=== PATIENT | female | born 1980 | race Caucasian/White ===

== ENCOUNTER → 2021-09-20 08:47 | Outpatient (CLI) | payer OTHER, SELFPAY ==
--- NOTE | 2021-09-20 08:51 | DI.MG.S_ITS ---
BILATERAL DIGITAL SCREENING MAMMOGRAM 3D/2D WITH CAD: 09/20/2021 CLINICAL: Routine screening. Baseline exam. No prior exams were available for comparison. The tissue of both breasts is heterogeneously dense. This may lower the sensitivity of mammography. Current study was also evaluated with a Computer Aided Detection (CAD) system. No significant masses, calcifications, or other findings are seen in either breast. IMPRESSION: NEGATIVE There is no mammographic evidence of malignancy. A 1 year screening mammogram is recommended. This exam was interpreted at Station ID: [id number]. NOTE: For mammograms, a report in lay terms will be sent to the patient. Approximately 15% of breast malignancies will not be visualized mammographically. In the management of a palpable breast mass, a negative mammogram must not discourage biopsy of a clinically suspicious lesion. Electronically Signed By: James Day M.D., jr/campos:09/20/2021 12:33:56 letter sent: Normal Exam ACR BI-RADS Category 1: Negative 3341F
== END ==
PROVIDERS: PCP Physician Assistant; Referring Provider Physician Assistant; Visit Provider Physician Assistant
DX: Z12.31 Encounter for screening mammogram for malignant neoplasm of breast (principal)
CPT/HCPCS: 77063; 77067

== ENCOUNTER → 2022-06-14 10:11 | Outpatient (CLI) | payer OTHER, SELFPAY ==
[2022-06-14 11:35] LABS: COVID19 -Nasal RAPID Negative (Negative)
== END ==
PROVIDERS: PCP Family Medicine; Visit Provider Obstetrics & Gynecology
DX: Z01.812 Encounter for preprocedural laboratory examination (principal); Z20.822 Contact with and (suspected) exposure to COVID-19
CPT/HCPCS: 87635

== ENCOUNTER 2022-06-14 12:06 | Day surgery (SDC) | payer OTHER, SELFPAY ==
[2022-06-07 14:02] VITALS: BMI 20.7
[2022-06-14] VITALS (10 sets, daily range): BP systolic 95–127; BP diastolic 57–75; PULSE 62–89; RESP 10–22; TEMP 36–36.6; O2SAT 94–100; BMI 20.5
--- NOTE | 2022-06-14 | PATH_ITS ---
[facility] Accession Number: [id number] . 01 Material submitted: . uterus - UTERUS, CERVIX, BILATERAL FALLOPIAN TUBES . 01 Diagnosis: Uterus, Cervix and Bilateral Fallopian Tubes, Hysterectomy and Bilateral Salpingectomy: Cervix with mild chronic inflammation; no dysplasia or malignancy. Proliferative endometrium; no atypical hyperplasia or malignancy. Histologic features suggestive of benign endometrial polyp. Benign leiomyomas. Complete cross-section of bilateral fimbriated fallopian tube lumen with benign paratubal cysts. No malignancy. [facility] 06/18/2022 1104 Local . 01 Electronically signed: . Luoann Mayers MD, Pathologist NPI- [id number] . 01 Gross description: . Received in formalin labeled with the patient's name and uterus, cervix, bilateral fallopian tubes, and consists of a fragmented disrupted uterus weighing 390 grams and aggregating to 18.5 x 12.4 x 6.4 cm. Two unoriented fimbriated fallopian tubes are attached, but due to the disruption and fragmentation, orientation cannot be determined. The fallopian tubes measure 6.8 x 0.9 cm and 5.6 x 1.0 cm, respectively. The cervix is detached and measures 3.5 x 3.0 cm. The ectocervix is pink-rivers and smooth, and the os is slit-like and measures 1.0 cm in diameter. The uterine serosa is rivers and trabecular with a firm nodule extending from the serosal surface measuring 3.1 cm in greatest dimension. The endometrial canal attached to the cervix had rivers herringbone mucosa and measures 4.1 cm in length. The intact portion of endometrial cavity measures approximately 3.1 cm from cornu to cornu, and 2.9 cm in length with red velvety endometrium averaging 0.1 cm thick. The myometrium measures up to 3.5 cm in maximum thickness. Multiple well-circumscribed white firm nodules are identified located intramurally and subserosally measuring up to 2.2 cm in greatest dimension. The area of the myometrium that is trabecular and whorled with rivers mucoid material is identified measuring 4.0 cm in greatest dimension. No additional lesions, hemorrhage, or necrosis is identified. The longer fallopian tube has smooth congested serosa with a cystic structure near the fimbriated end measuring 1.3 cm in greatest dimension filled with clear serous fluid. Sectioning reveals an unremarkable stellate lumen. The shorter fallopian tube has smooth congested serosa with no cystic structures identified and sectioning reveals unremarkable stellate lumen. Garbage Collector sections are submitted as follows: . A1: Cervix, A2: Opposite cervix. A3: Full-thickness section to include nodule. A4-A5: Possible full-thickness section composite to include nodular area with mucous material. A6: Additional outside sales representative insurance nodules. A7: Longer fallopian tube to include one-half of the bisected fimbriae and outside sales representative insurance cross-sections. A8: [place] fallopian tube to include one-half of bisected fimbriae and outside sales representative insurance cross-sections. ([id number]) /MRV 06/15/2022 1522 Local . 01 Pathologist provided ICD-10: N84.0, D25.9, Z30.2 . 01 CPT . 460464 Specimen Comment: A courtesy copy of this report has been sent to [facility] Performed at: 01 [facility] [address] [place] [address], [place], [place] [id number] MD Farhan Suarez MD Phone: [phone]
[2022-06-14] MEDS: LACTATED RINGERS 1,000 ML 42 ML IV ×2 (13:02→16:44)
[2022-06-14] MEDS: ACETAMINOPHEN 325 MG TABLET 650 MG PO (13:08)
[2022-06-14 13:19] LABS: Add Manual Diff / Slide Review NO; Basophils Absolute Auto 0 /uL (0-100); Eosinophils Absolute Auto 100 /uL (0-450); Eosinophils Percent Auto 1.7 % (2-4); Hematocrit 39.3 % (36-46); Hemoglobin 13.1 g/dL (12.0-16.0); Lymphocytes Absolute Auto 1400 /uL (1100-4500); Lymphocytes Percent Auto 38.2 % (25-40); Mean Corpuscular HGB Conc 33.5 % (30-36); Mean Corpuscular Hemoglobin 29.8 PG (26-34); Mean Corpuscular Volume 89.1 fL (80-100); Monocytes Absolute Auto 200 /uL (0-900); Monocytes Percent Auto 5.9 % (3-14); Neutrophils Absolute Auto 2000 /uL (1500-7000); Neutrophils Percent Auto 53.2 % (50-75); Platelet Count 208 X10^3/uL (150-400); Red Blood Cell Count 4.41 X10^6/uL (4.0-5.2); Red Cell Distribution Width 13.4 % (11.6-14.8); White Blood Cell Count 3.7 X10^3/uL (4.5-11.0)
[2022-06-14 13:43] LABS: Alanine Aminotransferase 26 IU/L (<35); Albumin 4.4 g/dL (3.5-5.0); Albumin Globulin Ratio 1.3 (1.0-2.8); Alkaline Phosphatase 51 U/L (38-126); Aspartate Aminotransferase 24 IU/L (14-36); BUN Creatinine Ratio 15.5 (6-22); Bilirubin Total 0.7 mg/dL (0.2-1.3); Blood Urea Nitrogen 9 mg/dL (7-17); Calcium 8.9 mg/dL (8.4-10.2); Carbon Dioxide 25 mmol/L (22-32); Chloride 104 mmol/L (98-107); Estimated Glomerular Filt Rate > 60 mL/min (>60); Globulin 3.3 g/dL (1.7-4.1); Glucose 89 mg/dL (70-100); HEMOLYSIS < 15 (0-50); Sodium 138 mmol/L (137-145); Total Protein 7.7 g/dL (6.3-8.2)
--- NOTE | 2022-06-14 14:35 | PM.PREOP ---
Pre-operative Note COVID-19 COVID-19 status: Negative Result date/Date tested (Pos, Neg/Pending): 06/14/22 Criteria for continued procedure: Possibility delay results in more complex future surgery or treatment and Continuing or worsening of significant or severe pain Interval Note History & Physical reviewed/Exam performed by Physician: Yes Changes to H&P: No
[2022-06-14] MEDS: SCOPOLAMINE 1 PATCH TOP (14:49)
[2022-06-14] MEDS: APREPITANT 40 MG CAPSULE PO (14:50)
[2022-06-14] MEDS: CEFAZOLIN 2 GM/100 ML PREMIX 100 ML IV (15:03)
--- NOTE | 2022-06-14 15:58 | SUR.OPER ---
Lithotomy on padded OR bed. [place] Pad Positioner under torso. Head on pillow, arms padded and tucked at sides. Legs secured in padded yellow fins stirrups.
[2022-06-14] MEDS: BUPIVACAINE 0.5% W/ EPI (PF) 30 ML VIAL INJ (16:07)
[2022-06-14] MEDS: ONDANSETRON 4 MG/2 ML INJ IV (18:13)
--- NOTE | 2022-06-14 18:20 | PM.OP.1 ---
Operative Date/Time/Diagnoses Date of procedure: 06/14/22 Time of procedure: 16:00 Pre-op diagnosis: symptomatic large fibroid uterus Post-op diagnosis: same Procedure & Clinicians Procedure: Laparoscopic hysterectomy and bilateral salpingectomy Same procedure as scheduled: Yes Indications: 41-year-old female with the a fibroid uterus with a 9.5 cm left posterior uterine fibroid. She was symptomatic with menorrhagia, intermenstrual spotting, chronic cyclic pelvic pain and dyspareunia as well as some pressure symptoms with urinary frequency. She desired to proceed with hysterectomy for definitive treatment. She had an endometrial biopsy which was. She had a Pap smear within the year without any significant abnormality, Pap was ASCUS negative HPV. Surgeon: Berta Marques School Year Nanny: Mejia Yao Click Yes if Unassisted: No Anesthesia Type: General Operative Notes Findings: Enlarged uterus, irregular in shape with a round mass, fullness, posteriorly in the midline to left side of the uterus. The apparent fibroid was soft to palpation and soft inspection with removal of the uterus. There was also a smaller, approximately 3 cm subserosal fibroid at the right posterior fundus. The fallopian tubes and ovaries were normal in appearance. There was no visible endometriosis in the pelvis. The abdomen and pelvis were without adhesions. The upper abdomen appeared normal. The liver appeared normal. Closure Type: primary Specimen(s): other (uterus with fibroid, cervix and bilateral fallopian tubes. ) Estimated Blood Loss (mL): 10 Blood products transfused: none Procedure in detail: After being properly identified she was taken operating room. After an adequate level of general anesthesia was obtained she was placed in the dorsal lithotomy position in [facility]. Bimanual examination was performed. On abdominal exam the uterus was not noted to be as high in her abdomen as in the office; was not easily palpated on abdominal exam today with being lower in her abdomen,perhaps after drainage of her bladder. Uterus on bimanual examination was approximately 14 cm in length. She was prepped and draped in routine sterile fashion. A Rand catheter was placed with the prep. Time-out was taken the patient and procedure was identified. An open-sided Graves speculum was placed and the cervix was grasped with a single-tooth tenaculum. There was descent of the cervix to the mid vagina with the tenaculum. The cervix was dilated and the uterus was sounded. The ProDeafare intrauterine manipulator with a large cervical cup was placed without difficulty. Attention was placed abdominally. After injection of approximately 2 mL of local anesthesia, a small vertical infraumbilical incision was made. The abdomen was elevated and a Veress needle was placed without difficulty. Drop test confirmed intraperitoneal placement. the CO2 gas was connected. Opening pressure was low. The abdomen was insufflated with CO2 gas. The Veress needle was removed and A 5 mm Visiport trocar was placed under direct visualization without difficulty. The camera was placed and confirmed intraperitoneal placement. Inferior to the trocar site was inspected and noted to be atraumatic. There were no pelvic adhesions visible. The uterine manipulator was used to elevate the uterus and the uterus was noted to be mobile. At this time 2 secondary trocars were placed under direct visualization after placement of local anesthesia. A trocar was placed in the right mid abdomen and the left mid abdomen. The patient was placed in Trendelenburg, a blunt probe was placed and the bowel was pushed out the pelvis. The uterus was elevated using the uterine manipulator and the pelvis was inspected with the above findings. The fibroid uterus was noted and otherwise the pelvis had normal findings. First attention was placed to her right side. The right fallopian tube was elevated and the power seal device was used to come across the mesosalpinx inferior to the fallopian tube, starting at the isthmic and between the tube and ovary and carrying the excision close to the cornua. The power seal device was then used to coagulate and excise the right utero-ovarian ligament, and then the excision was carried across the posterior broad ligament to the round ligament. The round ligament was coagulated and excised. The anterior leaf of the broad ligament was excised to the midline over the cervix. The bladder was pushed down off the lower cervix. The uterine artery was skeletonized using the power seal. The power seal was then used to coagulate the uterine artery at the level of the internal cervical os. Attention was then placed to her left side of the uterus. The left fallopian tube was elevated and the power seal device was used to come across the mesosalpinx inferior to the fallopian tube from the fimbriated end to near the uterine cornua. The fallopian tube was left attached to the uterus similar to the right side. The power seal device was then used to coagulate and excise the left utero-ovarian ligament, followed by the posterior broad ligament and then the left round ligament. The power seal was then used to excise the anterior leaf of the broad ligament and the vesico uterine peritoneum, excising to the midline to meet the excision from the other side. The vesicouterine peritoneum was pushed down off the cervix. The endopelvic fascia was excised over the cervix. The left uterine artery was skeletonized, clamped, coagulated and excised. The left vaginal angle was then coagulated. The posterior peritoneum over lower uterus and cervix was skeletonized bilaterally towards the uterosacral ligaments. . Attention was placed the right side where the left uterine artery was again coagulated, then excised. The right vaginal angle was coagulated. the posterior peritoneum was skeletonized over the lower uterus on this side. The VCare cup was palpated with the laparoscopic instruments. The vagina was circumferentially excised, just below the cervix, over the VCare cup and the uterus was then fully excised and free. Attention was then placed vaginally where the uterus was pulled into the vagina using the VCare Uterine manipulator. The VCare intrauterine manipulator was then removed. A weighted speculum was placed. A thin Robyn was placed anteriorly in the vagina. A right angle hand-held sidewall retractor was placed. The cervix was grasped with a tenaculum and the cervix and lower uterus was brought to the distal vagina. Using a scalpel, the cervix was amputated from the uterus. The lower uterus was then grasped with 2 tenaculums. With traction and with cutting with the scalpel, gradual portions of the uterus were removed and handed off the specimen. This was performed until the remaining uterus was able to be pulled through the vagina, with the uterus then fully removed. The cervix and all segments of the uterus, and attached fallopian tubes were sent as 1 specimen. The edges of the vaginal cuff were grasped with long Allis clamps. The vaginal cuff was then closed by first closing each vaginal angle with 0 Vicryl. The remainder of the vaginal cuff was then closed with [id number] sutures of 0 Vicryl. Inspection revealed good hemostasis across the vaginal cuff. Gloves were changed and then attention was again placed abdominally. The abdomen was re-insufflated with CO2 gas. The pelvis was irrigated and suctioned. Inspection of the vaginal cuff revealed good hemostasis. There was hemostasis throughout the pelvis. The ureters were visible bilaterally and noted to be peristalsing. The procedure was then ended. The abdomen was desufflated and continued hemostasis was noted. The abdomen was further desufflated and the trocars were removed. The trocar incisions were closed with subcuticular sutures of 4-0 Monocryl. Steri-Strips and sterile Veralyn dressings were placed. The Rand catheter was removed. She tolerated the procedure well and went to recovery room in stable condition. Complications: none Post-operative Condition: stable Disposition: PACU Plan for aftercare: Transferred to medical floor for continued post operative recovery, due to surgery finishing late in the evening.
[2022-06-14] MEDS: METOCLOPRAMIDE 10 MG/2 ML INJ IV (18:23)
[2022-06-14] MEDS: hydrOXYzine 50 MG/ML INJ 25 MG IM (18:32)
[2022-06-14] MEDS: BENZOCAINE/MENTHOL 1 LOZ PKT 1 EACH PO (21:06)
[2022-06-14] MEDS: KETOROLAC 30 MG/ML VIAL IV (23:34)
[2022-06-15 00:37] VITALS: BP 96/56; PULSE 67; RESP 18; TEMP 36.6; O2SAT 98
[2022-06-15] MEDS: BENZOCAINE/MENTHOL 1 LOZ PKT 1 EACH PO ×2 (03:47→10:24)
[2022-06-15 04:06] VITALS: BP 90/52; PULSE 61; RESP 15; TEMP 36.8; O2SAT 97
[2022-06-15] MEDS: KETOROLAC 30 MG/ML VIAL IV (05:31)
[2022-06-15 08:08] VITALS: BP 91/55; PULSE 68; RESP 16; TEMP 36.7; O2SAT 97
--- NOTE | 2022-06-15 10:06 | P.PN_ITS ---
Subjective Subjective Date Patient Seen: 06/15/22 Time Patient Seen: 10:06 Interval history: She reports doing well overnight. Her nausea resolved overnight. She is tolerating regular food. Incisional discomfort is tolerable, she only use the Toradol overnight. She reports voiding without difficulty. She has no vaginal bleeding, is not wearing a angelo-pad Exam Vital Signs (past 8 hours): - 06/15/22 04:06 06/15/22 08:08 Temperature 98.3 F 98.1 F Pulse Rate 61 68 Respiratory Rate 15 16 Blood Pressure 90/52 L 91/55 L Pulse Oximetry 97 97 Oxygen Flow Rate 0 0 Oxygen Delivery Method Room Air Oxygen Flow Rate 0 Narrative Exam Narrative: General: Well-appearing female no acute distress Abdomen soft, nontender. Minimal abdominal distention consistent with status post laparoscopy Three small dressings intact, dry. No skin erythema. Extremities: No edema. Inspection of Angelo pad reveals patient not needing to wear 1 and no blood on her Chux Objective Labs Result Diagrams: 06/14/22 13:00 06/14/22 13:00 Labs: Laboratory Results - last 24 hr 06/14/22 06/14/22 06/14/22 13:00 13:00 13:08 WBC 3.7 L RBC 4.41 Hgb 13.1 Hct 39.3 MCV 89.1 MCH 29.8 MCHC 33.5 RDW 13.4 Plt Count 208 Neut % (Auto) 53.2 Lymph % (Auto) 38.2 Reynolds % (Auto) 5.9 Eos % (Auto) 1.7 L Baso % (Auto) 1.0 Neut # (Auto) 2000 Lymph # (Auto) 1400 Reynolds # (Auto) 200 Eos # (Auto) 100 Baso # (Auto) 0 Sodium 138 Potassium 4.0 Chloride 104 Carbon Dioxide 25 BUN 9 Creatinine 0.58 Estimated GFR > 60 BUN/Creatinine Ratio 15.5 Glucose 89 Calcium 8.9 Total Bilirubin 0.7 AST 24 ALT 26 Alkaline Phosphatase 51 Total Protein 7.7 Albumin 4.4 Globulin 3.3 Albumin/Globulin Ratio 1.3 Blood Type A Positive Antibody Screen Negative [facility] Medical History (Updated 06/14/22 @ 20:07 by Stephanie Gramajo MD) Difficult airway for intubation Encounter for medical examination to establish care Screening for cervical cancer Family History (Updated 08/08/21 @ 22:50 by Lily Quintero) Mother Diabetes mellitus Hyperlipidemia Social History household members: spouse Smoking Status: Never smoker alcohol intake: current Assessment & Plan Assessment and plan (1) Status post laparoscopic hysterectomy: Status: Acute Assessment & Plan narrative: POD 1 Doing well. She has met routine postop remainders. She is ready and desires discharge home this morning. Prescriptions sent for oxycodone and ibuprofen follow up appointment in 2 weeks and 6 weeks. Time Spent With Patient Time with patient: less than 30 minutes Critical Care time: I spent a total of [] minutes of critical care time on this patient's care today; this time is exclusive of procedural time.
[2022-06-15] MEDS: OXYCODONE/ACETAMINOPHEN 5/325 TABLET 1 TAB PO (10:23)
--- NOTE | 2022-06-15 10:50 | CM.DANOTE ---
Initial DCP Assessment Note Pt is a 41 yo female, resident of [facility], now POD#1 from Laparoscopic hysterectomy and bilateral salpingectomy by Dr Berta Marques PCP: nAne Ortiz Payer: Brianna Reviewed chart, pt discussed in multidisciplinary rounds this morning. Patient is indp and active at baseline, spouse in room and patient now medically discharged from the hospital w/recommendation for close outpatient f/u No barriers identified at this time to patient's safe discharge home w/family to assist; close outpatient f/u recommended. YEIMI Andrade Discharge Planning/Care Management CM Discharge Assessment Start: 06/15/22 10:46 Freq: Status: Active Protocol: Document 06/15/22 10:47 MICHELINE (Rec: 06/15/22 10:49 MICHELINE [id number]) Discharge Planning Assessment Assigned Supervisor Multifocal [employer] YEIMI Murillo DPOA/Assigned Designee Name Parker Ling, spouse Contact Information [phone] Advance Directives? No History Provided By Patient Prior Living Arrangements House Household Members spouse Type of transportation used prior to Drives own vehicle admit Independent with ADL's Yes Is patient alert and oriented? Yes Barriers to Discharge No Discharge Plan Home Transportation Arrangement Spouse Referrals Initiated None needed Additional Comment Outpatient follow up
--- NOTE | 2022-06-15 11:11 | PC.NURSE ---
Day Shift Pt left for discharge via wheel chair to personal vehicle, with all paperwork, medications and questions answered. Pt has all personal possessions and was accompanied by spouse CJ.
== END 2022-06-15 11:12 | disposition home or self-care (01) ==
LOC: OR 12:07 → AC 12:07
PROVIDERS: PCP Family Medicine; Referring Provider Obstetrics & Gynecology; Visit Provider Obstetrics & Gynecology
PROC: 0UT94ZZ Resection of Uterus, Percutaneous Endoscopic Approach (ICD-10-PCS; CPT 58571; principal; 2022-06-14 13:30)
DX: D25.1 Intramural leiomyoma of uterus (principal); Z20.822 Contact with and (suspected) exposure to COVID-19; N84.0 Polyp of corpus uteri; N83.8 Other noninflammatory disorders of ovary, fallopian tube and broad ligament; N72 Inflammatory disease of cervix uteri; Z01.812 Encounter for preprocedural laboratory examination
CPT/HCPCS: 58571; 36415; 80053; 81025; 85025; 86850; 86900; 86901; 87635; J0330; J0690; J1100; J1170; J1885; J2250; J2405; J2704; J2765; J3010; J3410; J8501

== ENCOUNTER → 2025-01-01 10:47 | Outpatient (CLI) | payer OTHER, SELFPAY ==
[2022-06-14 20:00] VITALS: BMI 20.5
--- NOTE | 2025-01-01 10:49 | DI.US.S_ITS ---
PROCEDURE: US ABDOMEN LIMITED INDICATIONS: ABDOMEN BLOATING/PAIN. ELEVATED LIVER FUNCTION TESTS. TECHNIQUE: Real-time focused scanning was performed of the abdomen, with image documentation. COMPARISON: None. FINDINGS: The liver demonstrates normal size. The liver demonstrates generalized moderately increased echogenicity. This decreases ultrasound sensitivity for detection of hepatic masses. No findings of gallstones or sludge are seen. The gallbladder wall is not thickened, measuring 3 mm or less. No specific pericholecystic fluid is seen. The sonographic Marinelli sign is negative. There is no biliary dilatation, the common bile duct measures 6 mm. No significant pancreatic abnormality is seen on these images. IMPRESSION: The liver demonstrates increased echogenicity. This finding is nonspecific, yet it is most commonly attributed to fatty infiltration. The gallbladder demonstrates a normal sonographic appearance. No biliary dilatation is seen. Dictated by: Mohit Jenkins M.D. on 01/01/2025 at 15:09 Approved by: Mohit Jenkins M.D. on 01/01/2025 at 15:10
== END ==
PROVIDERS: PCP Family Medicine; Referring Provider Family Medicine; Visit Provider Family Medicine
DX: R79.89 Other specified abnormal findings of blood chemistry (principal); R14.0 Abdominal distension (gaseous); R10.9 Unspecified abdominal pain
CPT/HCPCS: 76705

== ENCOUNTER → 2025-04-14 12:53 | Outpatient (CLI) | payer OTHER, SELFPAY ==
[2022-06-14 20:00] VITALS: BMI 20.5
--- NOTE | 2025-04-14 12:54 | DI.MG.S_ITS ---
MM screening mammo BI: 04/14/2025. BI-RADS: 1 CLINICAL: 44-year old female for bilateral screening mammogram. Tyrer-Cuzick lifetime risk of 14.5%. No personal or first-degree family history of breast cancer. PRIOR EXAMS 09/20/2021. MAMMOGRAPHY TECHNIQUE: 2D and 3D (tomosynthesis) digital mammographic views obtained, with additional images as needed for full coverage. Current study was also evaluated with a Computer Aided Detection (CAD) system. DENSITY D. The breasts are extremely dense, which lowers the sensitivity of mammography. MAMMOGRAPHY FINDINGS Bilateral: No suspicious mass, asymmetry, microcalcification, or other abnormality seen. IMPRESSION: * No evidence of malignancy. RECOMMENDATIONS Bilateral * Annual screening mammography. OVERALL ASSESSMENT CATEGORY BI-RADS-1: Negative. The [employer] recommends annual screening mammography beginning at age 40 for women with average risk of breast cancer. ELECTRONICALLY SIGNED: Soniya George M.D. on 04/14/2025 at 10:33:27 PM PT Interpreting Station ID: [id number]
== END ==
PROVIDERS: PCP Family Medicine; Referring Provider Family Medicine; Visit Provider Family Medicine
DX: Z12.31 Encounter for screening mammogram for malignant neoplasm of breast (principal); R92.343 Mammographic extreme density, bilateral breasts
CPT/HCPCS: 77063; 77067